=== PATIENT | female | born 1940 | race Caucasian/White ===

== ENCOUNTER 2021-11-10 07:06 | Inpatient (IN) | payer MEDICARE, BC ==
[~2021-11-10] VITALS: Ht 152.4 cm; Wt 65.0 kg
[2021-11-10] VITALS (24 sets, daily range): BP systolic 116–163; BP diastolic 61–88
[2021-11-10] MEDS: ringers solution, lacted 1,000 ML IV SCH ×2 (00:45→14:45)
[2021-11-10] MEDS: HYDROmorph./NS 0.2 mg/ml CADD 100 ML IV SCH ×6 (01:00→21:00)
[~2021-11-10 07:06] MED LIST: DOCUMENT DATE & TIME OF BETA-BLOCKER PO ONE; cefazolin/dext.iso 2gm/50ml IV ONE; famotidine 20mg tablet PO ONE; ringers solution, lacted 1,000 ML IV SCH
[2021-11-10] MEDS ORDERED: PANT-47 PO (07:34)
[2021-11-10] MEDS ORDERED: METO-395 PO (07:34)
[2021-11-10] MEDS ORDERED: TRIA1CAP6 PO (07:34)
[2021-11-10] MEDS ORDERED: VENL150C2 PO (07:34)
[2021-11-10] MEDS ORDERED: MV-M1TAB19 PO (07:34)
[2021-11-10] MEDS ORDERED: ATOR20TA66 PO (07:34)
[2021-11-10] MEDS ORDERED: diatr meglu/diatrizoate 30ml oral sol.-(3 dose) bottle ONE (08:00)
[2021-11-10] MEDS ORDERED: LIDOcaine 1% 30ml preserv. free vial ONE (11:43)
[2021-11-10] MEDS ORDERED: BUPIVAcaine/PF 2.5mg/ml (0.25%) 10ml vial ONE (11:44)
[2021-11-10] MEDS ORDERED: ringers solution, lacted 1,000 ML IV SCH (12:20)
[2021-11-10] MEDS ORDERED: ondansetron/PF 4mg/2ml inj IV PRN ×2 (12:20→14:45)
[2021-11-10] MEDS ORDERED: fentaNYL/PF 50MCG/1 ML 2ML syringe ONE (12:21)
[2021-11-10] MEDS ORDERED: propofol inj 20 ML IV ONE (12:27)
[2021-11-10] MEDS ORDERED: rocuronium 10mg/ml inj IV ONE (12:27)
[2021-11-10] MEDS ORDERED: LIDOcaine 2% (20mg/ml) 5ml vial ONE (12:27)
[2021-11-10] MEDS ORDERED: sugammadex 200mg/2ml injection IV ONE (14:19)
[2021-11-10] MEDS ORDERED: ondansetron/PF 4mg/2ml inj ONE (14:19)
[2021-11-10] MEDS ORDERED: dexamethasone sod phosphate 4mg/ml inj. ONE (14:19)
[2021-11-10] MEDS ORDERED: ePHEDrine 50MG/ML INJ. ONE (14:19)
--- NOTE | 2021-11-10 14:34 | NUR ---
Received from OR via , accompanied by Anesthesiologist DR NAZARIO and report given by Anesthesiolgist. PT PRESENTS WITH 20G AC, ABD DRESSING DRY AND INTACT. VSS. Addendum: 11/10/21 at 1512 by Lyudmila Curiel RN, RN Amended: Links added.
[2021-11-10] MEDS ORDERED: pantoprazole 40MG/D5 100ML BAG 100 ML IV SCH (14:45)
[2021-11-10] MEDS ORDERED: naloxone 0.4 mg/ml inj IV PRN (14:45)
[2021-11-10] MEDS ORDERED: CADD PCA waste documentation MC PRN (14:45)
[2021-11-10] MEDS ORDERED: hydrALAZINE 20mg/ml inj. IV PRN (14:55)
[2021-11-10] MEDS: HYDROmorphone/PF 0.2 MG/ML SYRINGE IV PRN ×3 (14:57→15:25)
[2021-11-10] MEDS: morphine 2 MG/ML inj. syringe IV PRN ×3 (15:02→15:52)
[2021-11-10 16:14] LABS: ISTAT CREATININE 1.3 mg/dL (0.6-1.1); ISTAT HGB 9.5 g/dl (12.0-16.0); ISTAT IONIZED CALCIUM 1.15 mmol/L (1.03-1.32); ISTAT K 3.8 mmol/L (3.5-5.1); POC BUN/CREATININE RATIO 26.2 (6.6-38.0)
--- NOTE | 2021-11-10 16:34 | NUR ---
Report called to receiving nurse WENDIE MAYER. Transferred via HOSPITAL BED, 2 PT Belongings BAGS SENT WITH PT TO ROOM 349A TRANSFERED BY JAMES MAYER TO ROOM 347A. . Special Issues communicated to receiving nurse. Addendum: 11/10/21 at 1643 by Lyudmila Curiel RN RN Amended: Links added.
--- NOTE | 2021-11-10 19:09 | NUR ---
Problems reprioritized. Patient report given, questions answered & plan of care reviewed with LEYLA LUTZ.
[2021-11-10] MEDS: pantoprazole 40MG/NS 100ML BAG 100 ML IV SCH (21:04)
[2021-11-11] VITALS: BP 126/56
[2021-11-11] MEDS: HYDROmorph./NS 0.2 mg/ml CADD 100 ML IV SCH ×5 (03:00→11:00)
[2021-11-11 07:00] VITALS: BP 132/62
[2021-11-11 07:22] LABS: BASOPHILS % (AUTO) 0.2 % (0-1); EOSINOPHILS % (AUTO) 0.5 % (0-6); HEMATOCRIT 27.1 % (35.0-45.0); HEMOGLOBIN 8.8 g/dl (12.0-16.0); LYMPHOCYTES # (AUTO) 1.7 X10'3 (1.1-4.8); LYMPHOCYTES % (AUTO) 28.1 % (21-51); MEAN CORPUSCULAR HEMOGLOBIN 25.8 PG (27.0-31.0); MEAN CORPUSCULAR HGB CONC 32.6 g/dL (33.0-36.5); MEAN CORPUSCULAR VOLUME 79.2 FL (78-98); MEAN PLATELET VOLUME 7.5 FL (7.4-10.4); MONOCYTES # (AUTO) 0.6 X10'3 (0-0.9); MONOCYTES % (AUTO) 9.6 % (2-12); NEUTROPHILS # (AUTO) 3.6 X10'3 (1.8-7.7); NEUTROPHILS % (AUTO) 61.6 % (42-75); PLATELET COUNT 329 X10'3 (140-440); RED BLOOD COUNT 3.42 X10'6 (4.20-5.60); WHITE BLOOD COUNT 5.9 X10'3 (4.5-11.0)
[2021-11-11 07:53] LABS: ANION GAP 9 (8-16); BLOOD UREA NITROGEN 27 MG/DL (7-18); BUN/CREATININE RATIO 21.6 (6.6-38.0); CALCIUM 8.4 MG/DL (8.5-10.1); CHLORIDE 103 MMOL/L (99-107); CREATININE 1.25 MG/DL (0.40-0.90); GLUCOSE 93 MG/DL (70-104); POTASSIUM 3.7 MMOL/L (3.5-5.1); SODIUM 141 MMOL/L (135-145); eGFR 41 ML/MIN
[2021-11-11] MEDS ORDERED: metoprolol succinate 25mg (24-HOUR) SR. Tablet PO SCH (08:00)
[2021-11-11] MEDS ORDERED: enoxaparin 40mg/0.4ml syringe SQ SCH (08:00)
[2021-11-11] MEDS ORDERED: triamterene/HCTZ 37.5/25mg tablet PO SCH (08:00)
[2021-11-11] MEDS: pantoprazole 40MG/NS 100ML BAG 100 ML IV SCH (08:31)
[2021-11-11] MEDS: ringers solution, lacted 1,000 ML IV SCH (10:45)
[2021-11-11] MEDS ORDERED: acetaminophen 325mg tablet PO PRN (12:55)
--- NOTE | 2021-11-11 14:59 | NUR ---
Nutrition consult: Per MD note pt s/p toupee fundoplication. Pt seen at bedside provided with written nutrition therapy education with brief verbal review as pt was in the process of discharging. Education includes diet progression and ONS coupons. Pt denies questions at this time. RD contact information provided and pt encouraged to reach out if needed. Will remain available. Addendum: 11/11/21 at [address] Amended: Links added.
--- NOTE | 2021-11-11 15:06 | NUR ---
REVIEWED DISCHARGE PAPERWORK, DISCHARGE HOME MEDS, F/U CARE, INCISIONAL CARE. S/SX INFECTION, WEIGHT RESTRICTIONS, DIET WITH PT. IV DC'D, CANNULA INTACT, NO S/SX BLEEDING. GATHERED PT. BELONGINGS, HERE TO P/U PT. IN PRIVATE VEHICLE.
--- NOTE | 2021-11-11 15:11 | NUR ---
PT. HEARING AIDS FOUND IN ROOM. PLACED IN DENTURE CONTAINER WITH NAME LABEL ON IT AND PUT IN LOST AND FOUND ON SURGICAL FLOOR. PT. CALLED SHE IS AWARE AND DOES NOT WANT TO TURN AROUND BUT WILL COME BACK AND GET THEM IN A COUPLE DAYS.
== END 2021-11-11 14:59 | disposition home or self-care (01) | DRG 328 ==
LOC: PAS 07:06 → SUR 3N 14:49
PROVIDERS: ADMIT Surgery; ATTEND Surgery
PROC: 0DV44ZZ Restriction of Esophagogastric Junction, Percutaneous Endoscopic Approach (ICD-10-PCS; 2021-11-10)
PROC: 8E0W4CZ Robotic Assisted Procedure of Trunk Region, Percutaneous Endoscopic Approach (ICD-10-PCS; 2021-11-10)
PROC: 0BQT4ZZ Repair Diaphragm, Percutaneous Endoscopic Approach (ICD-10-PCS; principal; 2021-11-10 12:25)
PROC: BD11YZZ Fluoroscopy of Esophagus using Other Contrast (ICD-10-PCS; 2021-11-11)
DX: K44.9 Diaphragmatic hernia without obstruction or gangrene (principal); D64.9 Anemia, unspecified; E78.5 Hyperlipidemia, unspecified; I10 Essential (primary) hypertension; Z79.899 Other long term (current) drug therapy
CPT/HCPCS: 36415; 71045; 74220; 80047; 80048; 82948; 85025; 86885; 86900; 86901; 87081; A4618; C1758; C9113; G0378; J0690; J1100; J1170; J1650; J2270; J2405; J2704; J3010; J3490; J7120; Q9963